=== PATIENT | male | born 1975 | race Caucasian/White ===

== ENCOUNTER → 2020-08-01 | Outpatient (CLI) | payer OTHER | LOC: CAT 09:46 | PROVIDERS: ATTEND Family Medicine | DX: Z13.6 Encounter for screening for cardiovascular disorders (principal); I25.10 Atherosclerotic heart disease of native coronary artery without angina pectoris; E78.00 Pure hypercholesterolemia, unspecified ==

== ENCOUNTER → 2020-08-15 | Outpatient (CLI) | payer BC, OTHER | LOC: ULTRA 09:19 | PROVIDERS: ATTEND Family Medicine | DX: K76.89 Other specified diseases of liver (principal); R16.1 Splenomegaly, not elsewhere classified; K76.9 Liver disease, unspecified ==